=== PATIENT | female | born 1960 | race Two or more races ===

== ENCOUNTER 2017-11-19 07:14 | Emergency (ER) | payer BC, OTHER ==
[~2017-11-19] VITALS: Ht 137.2 cm; Wt 64.0 kg
[~2017-11-19 07:14] MED LIST: PRILOSEC10 MG PO
[2017-11-19] MEDS ORDERED: NKM (07:23)
[2017-11-19] MEDS ORDERED: ROBAXIN-750750 MG PO (07:36)
[2017-11-19] MEDS ORDERED: TYLENOL EXTRA500 MG ORAL (07:36)
[2017-11-19 07:44] VITALS: BP 141/94
[2017-11-19] MEDS ORDERED: Acetaminophen 500mg (ES) tab ORAL ONE (07:45)
[2017-11-19] MEDS ORDERED: Methocarbamol 750mg tab ORAL ONE (07:45)
--- NOTE | 2017-11-19 08:15 | Emergency Room Report ---
History of Present Illness General Chief Complaint: Upper Extremity Injury Source: Patient Present Illness HPI 56-year-old female presents ED for evaluation. Patient presenting with left shoulder and neck pain. States she's had this pain for 2 months. Got worse last night after lifting a baby. Pain is dull, 9 out of 10, radiating through the neck and shoulder. Limited abduction secondary to pain. Denies any other injuries. Denies neck stiffness. Denies headache. Denies chest pain or shortness of breath. No other aggravating relieving factors. Denies any other associated symptoms Allergies: Coded Allergies: No Known Allergies (Unverified , 02/10/12) Patient History Past Medical History: GERD Past Surgical History: none Pertinent Family History: none Social History: Denies: smoking, alcohol use, drug use Last Menstrual Period: 1997 Now: No Immunizations: UTD Reviewed Nursing Documentation: PMH: Agreed; PSxH: Agreed Nursing Documentation-PMH Hx Gastrointestinal Problems: Yes - "occasional acid reflux" - takes omeprazole Review of Systems All Other Systems: negative except mentioned in HPI Physical Exam Vital Signs Date Time Temp Pulse Resp B/P (MAP) Pulse Ox O2 Delivery O2 Flow Rate FiO2 11/19/17 07:19 98.0 73 16 141/94 95 Room Air 98.1 Sp02 EP Interpretation: reviewed, normal General Appearance: no apparent distress, alert, GCS 15, non-toxic Head: normocephalic Eyes: bilateral eye normal inspection, bilateral eye PERRL ENT: hearing grossly normal, normal pharynx, no angioedema, normal voice Neck: full range of motion, no bony tend, supple/symm/no masses, tender lateral Respiratory: chest non-tender, lungs clear, normal breath sounds, speaking full sentences Cardiovascular #1: regular rate, rhythm, no edema Gastrointestinal: normal inspection Rectal: deferred Genitourinary: no CVA tenderness Musculoskeletal: tender - L shoulder, trapezius Neurologic: alert, oriented x3, responsive, motor strength/tone normal, sensory intact, speech normal Psychiatric: normal inspection Skin: normal inspection Lymphatic: normal inspection Medical Decision Making Diagnostic Impression: Primary Impression: Shoulder strain Qualified Codes: S46.912A - Strain of unspecified muscle, fascia and tendon at shoulder and upper arm level, left arm, initial encounter ER Course Hospital Course 56-year-old female presents ED complaining of left-sided neck pain and shoulder pain Differential diagnoses include: neck strain, shoulder strain, dislocation/ fracture Clinical course Patient placed on stretcher. After initial history and physical exam reveals middle-aged female in no acute distress. On exam there is no midline neck tenderness. Full range of motion to the shoulder. There is pain over the left trapezius. Consistent with a neck strain/shoulder strain I ordered tylenol, robaxin, lidoderm patch in ED. Upon reassessment pain is improved Diagnosis - shoulder strain Stable and discharged to home with prescription for treatment Tylenol, Robaxin. Followup with PMD. Return to ED if symptoms recur or worsen Last Vital Signs Date Time Temp Pulse Resp B/P (MAP) Pulse Ox O2 Delivery O2 Flow Rate FiO2 11/19/17 07:44 98.5 73 16 141/94 95 Room Air 98.5 Status: improved Disposition: HOME, SELF-CARE Condition: Stable Scripts Methocarbamol* (ROBAXIN-750*) 750 Mg Tablet 750 MG PO TID, #21 TAB 0 Refills Prov: Larry Ruvalcaba MD 11/19/17 Acetaminophen* (TYLENOL EXTRA STRENGTH*) 500 Mg Tablet 500 MG ORAL Q8H PRN for Prn Headache/Temp > 101, #30 TAB 0 Refills Prov: Larry Ruvalcaba MD 11/19/17 Referrals: [facility] (PCP) Patient Instructions: Muscle Strain, [id number] Larry Ruvalcaba MD Nov 19, 2017 08:15
== END 2017-11-19 07:44 | disposition home or self-care (01) ==
LOC: EMR 07:31
DX: S46.912A Strain of unspecified muscle, fascia and tendon at shoulder and upper arm level, left arm, initial encounter (principal); X50.9XXA Other and unspecified overexertion or strenuous movements or postures, initial encounter; Y92.9 Unspecified place or not applicable; K21.9 Gastro-esophageal reflux disease without esophagitis
CPT/HCPCS: 99283

== ENCOUNTER 2018-04-09 11:13 | Emergency (ER) | payer OTHER ==
[~2018-04-09] VITALS: Ht 152.4 cm; Wt 62.1 kg
[~2018-04-09 11:13] MED LIST changes: +NKM; +ROBAXIN-750750 MG PO; +TYLENOL EXTRA500 MG ORAL
[2018-04-09] MEDS ORDERED: METFORMIN HCL1000 M1 ORAL (11:39)
[2018-04-09 11:45] VITALS: BP 110/62
--- NOTE | 2018-04-09 11:45 | NUR ---
ED Nurse Note: pt walked in c/o abd pain since last night with nausea and diarrhea but no vomiting. pt reports pain on RUQ on palpation and states have pain throughout. active bs noted. pt AA&ox4, gcs=15, skin warm and dry, resp even and unlabored on RA, no active vomiting or diarrhea noted at this time, will cont monitor.
[2018-04-09 12:48] LABS: BASOPHILS % (AUTO) 0.8 % (0.0-2.0); EOSINOPHILS % (AUTO) 3.2 % (0.0-3.0); HEMATOCRIT 46.4 % (37.0-47.0); HEMOGLOBIN 15.1 G/DL (12.0-16.0); LYMPHOCYTES % (AUTO) 11.5 % (20.0-45.0); MEAN CORPUSCULAR VOLUME 88 FL (80-99); MONOCYTES % (AUTO) 4.1 % (1.0-10.0); NEUTROPHILS % (AUTO) 80.4 % (45.0-75.0); PLATELET COUNT 269 K/UL (150-450); RED BLOOD COUNT 5.25 M/UL (4.20-5.40); RED CELL DISTRIBUTION WIDTH 12.5 % (11.6-14.8); WHITE BLOOD COUNT 12.3 K/UL (4.8-10.8)
[2018-04-09 12:52] LABS: APPEARANCE,URINE CLEAR; BILIRUBIN, URINE NEGATIVE (NEGATIVE); GLUCOSE, URINE (UA) NEGATIVE (NEGATIVE); KETONES,URINE 1+ (NEGATIVE); LEUKOCYTE ESTERASE ,URINE 3+ (NEGATIVE); NITRITE,URINE NEGATIVE (NEGATIVE); PH,URINE 5 (4.5-8.0); PROTEIN,URINE 2+ (NEGATIVE); UROBILINOGEN,URINE 1 MG/DL (0.0-1.0)
[2018-04-09 12:55] LABS: ANION GAP 9 mmol/L (5-15); BLOOD UREA NITROGEN 15 mg/dL (7-18); CALCIUM 9.8 MG/DL (8.5-10.1); CARBON DIOXIDE 31 MMOL/L (21-32); CHLORIDE 98 MMOL/L (98-107); CREATININE 0.9 MG/DL (0.55-1.30); POTASSIUM 4.5 MMOL/L (3.5-5.1); SODIUM 138 MMOL/L (136-145)
[2018-04-09 12:59] LABS: ALANINE AMINOTRANSFERASE 41 U/L (12-78); ALBUMIN 4.3 G/DL (3.4-5.0); ALKALINE PHOSPHATASE 85 U/L (46-116); ASPARTATE AMINO TRANSFERASE 26 U/L (15-37); BILIRUBIN,TOTAL 0.8 MG/DL (0.2-1.0)
[2018-04-09] MEDS ORDERED: Ketorolac 30mg Inj IV ONE (13:00)
[2018-04-09 13:01] LABS: COLOR,URINE YELLOW
--- NOTE | 2018-04-09 13:03 | Emergency Room Report ---
History of Present Illness General Chief Complaint: Abdominal Pain Source: Patient Present Illness HPI 57-year-old female presents to the emergency department complaining of 10 out of 10 in severity epigastric and right upper quadrant abdominal pain with nausea and diarrhea since 2 AM this morning. Patient denies fevers or chills. Patient denies vomiting. Patient denies blood in the stools or black tarry stools. Patient denies recent antibiotic use, recent travel or ill contacts with similar symptoms. She denies history of gallstones. He also reports 5 out of 10 in severity generalized headache that had progressive onset she denies dizziness, changes in vision, changes in hearing, or gross motor weakness.Denies CP, Palpitations, LOC, AMS, dizziness, Changes in Vision, Sensation, paresthesias, or a sudden severe headache. She reports history of diabetes. Allergies: Coded Allergies: No Known Allergies (Unverified , 02/10/12) Patient History Past Medical History: see triage record Past Surgical History: none Pertinent Family History: none Now: No Reviewed Nursing Documentation: PMH: Agreed; PSxH: Agreed Nursing Documentation-PMH Past Medical History: No History, Except For Hx Diabetes: Yes - pre-diabetes (not on meds) Hx Gastrointestinal Problems: Yes - "occasional acid reflux" - takes omeprazole Review of Systems All Other Systems: negative except mentioned in HPI Physical Exam Vital Signs Date Time Temp Pulse Resp B/P (MAP) Pulse Ox O2 Delivery O2 Flow Rate FiO2 04/09/18 11:33 98.1 95 22 107/66 97 Room Air Sp02 EP Interpretation: reviewed, normal General Appearance: alert, GCS 15, non-toxic, mild distress Head: normocephalic, atraumatic Eyes: bilateral eye normal inspection, bilateral eye PERRL ENT: hearing grossly normal, normal voice Neck: full range of motion Respiratory: lungs clear, normal breath sounds, speaking full sentences Cardiovascular #1: regular rate, rhythm Gastrointestinal: normal bowel sounds, soft, non-distended, no guarding, tenderness - EPigastric and RUQ ttp. Rectal: deferred Genitourinary: normal inspection, no CVA tenderness Musculoskeletal: back normal, gait/station normal, normal range of motion, non- tender Neurologic: alert, oriented x3, responsive, motor strength/tone normal, sensory intact, normal gait, speech normal, grossly normal Psychiatric: judgement/insight normal Skin: normal color, no rash, warm/dry, well hydrated Lymphatic: no adenopathy Medical Decision Making PA Attestation Dr. Teran is my supervising Physician whom patient management has been discussed with. Diagnostic Impression: Primary Impression: Pancreatitis Qualified Codes: K85.90 - Acute pancreatitis without necrosis or infection, unspecified Additional Impressions: Diarrhea Qualified Codes: R19.7 - Diarrhea, unspecified UTI (urinary tract infection) Qualified Codes: N30.01 - Acute cystitis with hematuria ER Course 57-year-old female presents to the emergency department complaining of 10 out of 10 in severity epigastric and right upper quadrant abdominal pain with nausea and diarrhea since 2 AM this morning. Patient denies fevers or chills. Patient denies vomiting. Patient denies blood in the stools or black tarry stools. Patient denies recent antibiotic use, recent travel or ill contacts with similar symptoms. She denies history of gallstones. He also reports 5 out of 10 in severity generalized headache that had progressive onset she denies dizziness, changes in vision, changes in hearing, or gross motor weakness.Denies CP, Palpitations, LOC, AMS, dizziness, Changes in Vision, Sensation, paresthesias, or a sudden severe headache. She reports history of diabetes. Ddx considered but are not limited to Diverticulitis, acute appy, diarrhea,UC, PUD, GE, pancreatitis, gallstone Vital signs: are WNL, pt. is afebrile H&PE are most consistent with : GE will eval for pancreatic or gallbladder etiology. ORDERS: CBC, CMP, lipase, UA-- elevated Lipase, normal LFT's, evidence of UTI ED INTERVENTIONS: -- 1000NS, Toradol IV, and zofran 4mg. d/w pt. conservative treatment, and to follow up with a primary care provider. pt given a list of primary care clinics for follow up. d/w pt. to return to the ED with worsening or new symptoms. DISCHARGE: At this time pt. is stable for d/c to home. Will provide printed patient care instructions, and any necessary prescriptions. Care plan and follow up instructions have been discussed with the patient prior to discharge. Labs Test 04/09/18 12:30 White Blood Count 12.3 K/UL (4.8-10.8) Red Blood Count 5.25 M/UL (4.20-5.40) Hemoglobin 15.1 G/DL (12.0-16.0) Hematocrit 46.4 % (37.0-47.0) Mean Corpuscular Volume 88 FL (80-99) Mean Corpuscular Hemoglobin 28.7 PG (27.0-31.0) Mean Corpuscular Hemoglobin Concent 32.5 G/DL (32.0-36.0) Red Cell Distribution Width 12.5 % (11.6-14.8) Platelet Count 269 K/UL (150-450) Mean Platelet Volume 6.2 FL (6.5-10.1) Neutrophils (%) (Auto) 80.4 % (45.0-75.0) Lymphocytes (%) (Auto) 11.5 % (20.0-45.0) Monocytes (%) (Auto) 4.1 % (1.0-10.0) Eosinophils (%) (Auto) 3.2 % (0.0-3.0) Basophils (%) (Auto) 0.8 % (0.0-2.0) Urine Color Yellow Urine Appearance Clear Urine pH 5 (4.5-8.0) Urine Specific [place] 1.025 (1.005-1.035) Urine Protein 2+ (NEGATIVE) Urine Glucose (UA) Negative (NEGATIVE) Urine Ketones 1+ (NEGATIVE) Urine Blood 4+ (NEGATIVE) Urine Nitrite Negative (NEGATIVE) Urine Bilirubin Negative (NEGATIVE) Urine Urobilinogen 1 MG/DL (0.0-1.0) Urine Leukocyte Esterase 3+ (NEGATIVE) Urine RBC 5-10 /HPF (0 - 2) Urine WBC 15-20 /HPF (0 - 2) Urine Squamous Epithelial Cells Few /LPF (NONE/OCC) Urine Bacteria Occasional /HPF (NONE) Urine Mucus Few /LPF (NONE/OCC) Sodium Level 138 MMOL/L (136-145) Potassium Level 4.5 MMOL/L (3.5-5.1) Chloride Level 98 MMOL/L (98-107) Carbon Dioxide Level 31 MMOL/L (21-32) Anion Gap 9 mmol/L (5-15) Blood Urea Nitrogen 15 mg/dL (7-18) Creatinine 0.9 MG/DL (0.55-1.30) Estimat Glomerular Filtration Rate > 60 mL/min (>60) Glucose Level 171 MG/DL (74-106) Calcium Level 9.8 MG/DL (8.5-10.1) Total Bilirubin 0.8 MG/DL (0.2-1.0) Aspartate Amino Transf (AST/SGOT) 26 U/L (15-37) Alanine Aminotransferase (ALT/SGPT) 41 U/L (12-78) Alkaline Phosphatase 85 U/L (46-116) Total Protein 8.7 G/DL (6.4-8.2) Albumin 4.3 G/DL (3.4-5.0) Globulin 4.4 g/dL Albumin/Globulin Ratio 1.0 (1.0-2.7) Lipase 745 U/L (73-393) CT/MRI/US Diagnostic Results CT/MRI/US Diagnostic Results : Imaging Test Ordered: CT Abdomen and Pelvis w. Contrast IV Impression Gallbladder surgically removed, normal appendix and size of pancreas, mild wall thickening of the proximal GI tract--Per official radiology report- Please see report for specific details. Last Vital Signs Date Time Temp Pulse Resp B/P (MAP) Pulse Ox O2 Delivery O2 Flow Rate FiO2 04/09/18 11:45 98.1 92 18 110/62 99 Room Air Disposition: HOME, SELF-CARE Condition: Stable Scripts Dicyclomine Hcl* (DICYCLOMINE HCL*) 10 Mg Capsule 10 MG PO QID, #12 CAP Prov: June Jacobs 04/09/18 Ondansetron Odt* (ZOFRAN ODT*) 4 Mg Tab.rapdis 4 MG BC EVERY 6 HOURS PRN for Nausea & Vomiting, #15 TAB 0 Refills Prov: June Jacobs 04/09/18 Sulfamethoxazole/Trimethoprim (BACTRIM 400-80 MG TABLET*) 1 Each Tablet 1 TAB ORAL TWICE A DAY for 7 Days, #14 TAB Prov: June Jacobs 04/09/18 Referrals: [facility] (PCP) Patient Instructions: Abdominal Pain, Adult, Acute Pancreatitis, [id number], Diarrhea, Adult, [id number] Additional Instructions: Take medications as directed. Follow up with a Primary Care Provider in 3-5 days, even if your symptoms have resolved. --Please review list of primary care clinics, if you do not already have a primary care provider Return sooner to ED if new symptoms occur, or current symptoms become worse. - Please note that this Emergency Department Report was dictated using [employer] exchange operator technology software, occasionally this can lead to erroneous entry secondary to interpretation by the dictation equipment. June Jacobs Apr 09, 2018 13:03
[2018-04-09] MEDS ORDERED: Isovue-300 100ml vial INJ PRN (13:30)
--- NOTE | 2018-04-09 15:26 | Diagnostic Imaging Report ---
Clinical Indication: Right upper quadrant pain and epigastric pain Technique: No oral contrast utilized, per emergency room physician request IV administration nonionic contrast. Venous phase spiral acquisition obtained through the abdomen and pelvis. Multiplanar reconstructions were generated. Total dose length product 629.11 mGycm. CTDIvol(s) 12.74 mGy. Dose reduction achieved using automated exposure control Comparison: none Findings: Lack of enteric contrast limits assessment of the GI tract. The appendix is normal. The appendix is normal. No evidence of colonic diverticulosis or diverticulitis. Proximal jejunal loops demonstrate mild wall thickening and are somewhat fluid-filled, somewhat prominent in caliber. More distal loops are normal in caliber, fluid-filled. No free or loculated intraperitoneal gas or fluid is evident. The distal esophagus, stomach, duodenum are unremarkable. There are cholecystectomy clips. The liver is mildly hypoattenuating, consistent with fatty change. No focal abnormality. No biliary ductal dilatation. Pancreas, spleen, adrenals, kidneys are unremarkable. No renal or ureteral calculi, hydronephrosis, or hydroureter. The bladder is mildly distended. No pelvic mass or adenopathy. Normal uterus and adnexal structures. The included lung bases are clear. The bones are unremarkable except for facet arthrosis at and L5-S1 and bilateral sacroiliac joint degenerative change. Impression: Limited assessment of the GI tract, due to lack of enteric contrast demonstration Suggestion of some wall thickening of the short segment of proximal jejunum, mildly fluid-filled proximal small bowel, could indicate enteritis changes No acute process otherwise Fatty liver Evidence of prior cholecystectomy Incidental findings as noted, including bilateral sacroiliac joint degenerative change and bilateral L5-S1 facet arthrosis The CT scanner at [facility] is accredited by the [employer] and the scans are performed using protocols designed to limit radiation exposure to as low as reasonably achievable to attain images of sufficient resolution adequate for diagnostic evaluation.
[2018-04-09] MEDS ORDERED: BACTRIM 400-801 EACH ORAL (15:44)
[2018-04-09] MEDS ORDERED: ONDANSETRON ODT4 MG BC (15:44)
[2018-04-09] MEDS ORDERED: DICYCLOMINE HCL10 MG PO (15:44)
[2018-04-09 15:57] VITALS: BP 118/67
--- NOTE | 2018-04-09 15:58 | NUR ---
ED Nurse Note: pt cleared to be d/c per ER provider, pt discharge/aftercare instruction provided w/ prescription, pt education done via discussion and handout, pt advised to follow up with pcp or return to ed if sx worsen or new sx develop, pt verbalized understanding and agrees with plan. iv d/c and dressing applied, wrist band removed. all belongings left w/ pt, pt vss, ambulatory w/ steady gait, resp even and unlabored on RA.
== END 2018-04-09 15:59 | disposition home or self-care (01) ==
LOC: EMR 12:20
DX: K85.90 Acute pancreatitis without necrosis or infection, unspecified (principal); R19.7 Diarrhea, unspecified; N39.0 Urinary tract infection, site not specified; E11.9 Type 2 diabetes mellitus without complications
CPT/HCPCS: 36415; 74177; 80053; 81003; 82962; 83690; 85025; 87086; 96361; 96374; 96375; 99284; J1885; J2405; Q9967; S0028

== ENCOUNTER 2019-05-26 17:43 | Emergency (ER) | payer SELFPAY ==
[~2019-05-26] VITALS: Ht 152.4 cm; Wt 63.0 kg
[~2019-05-26 17:43] MED LIST changes: +BACTRIM 400-801 EACH ORAL; +DICYCLOMINE HCL10 MG PO; +METFORMIN HCL1000 M1 ORAL; +ONDANSETRON ODT4 MG BC
[2019-05-26 18:10] VITALS: BP 150/89
--- NOTE | 2019-05-26 18:10 | NUR ---
ED Nurse Note: Pt walked into ED from home for c/o UTI like symptoms onset one week ago. Pt states she has dysuria, pain around vaginal area and urgency to use restroom. Pt is aaox4, breathing is normal and unlabored, no acute distress noted. Will continue to monitor. Urine specimen collected and sent to lab.
--- NOTE | 2019-05-26 18:10 | Emergency Room Report ---
History of Present Illness General Chief Complaint: Female Urogenital Problems Source: Patient Present Illness HPI 58 YO female presents to the ED c/o 6/0 in severity pelvic cramping x 3 days. Pt. reports pain has been progressive. She also reports last week she experienced vaginal bleeding similar to that of a period. Pt. Denies vaginal d/ c. She does reports burning sensation of the inner genital area. She denies external burning or itching. She reports experiencing dysuria as well. She denies low back pain. She describes her pelvic cramping as similar to contractions during . Denies fevers, chills, nausea or vomiting. She denies constipation or diarrhea. Allergies: Coded Allergies: No Known Allergies (Unverified , 02/10/12) COVID-19 Screening Contact w/high risk pt: No Recent Travel to affected area: No Experienced COVID-19 symptoms?: No Patient History Past Medical History: see triage record Past Surgical History: none Pertinent Family History: none Last Menstrual Period: na Reviewed Nursing Documentation: PMH: Agreed; PSxH: Agreed Nursing Documentation-PMH Hx Diabetes: Yes - pre-diabetes (not on meds) Hx Gastrointestinal Problems: Yes - "occasional acid reflux" - takes omeprazole Review of Systems All Other Systems: negative except mentioned in HPI Physical Exam Vital Signs Date Time Temp Pulse Resp B/P (MAP) Pulse Ox O2 Delivery O2 Flow Rate FiO2 05/26/19 17:45 97.7 91 17 150/89 (109) 97 Room Air Sp02 EP Interpretation: reviewed, normal General Appearance: no apparent distress, alert, GCS 15, non-toxic Head: normocephalic, atraumatic Eyes: bilateral eye normal inspection, bilateral eye PERRL ENT: hearing grossly normal, normal voice Neck: full range of motion Respiratory: lungs clear, normal breath sounds, speaking full sentences Cardiovascular #1: regular rate, rhythm Gastrointestinal: normal bowel sounds, non tender, soft, non-distended, no guarding Genitourinary: normal inspection, no CVA tenderness, ext genitalia/vag normal Musculoskeletal: back normal, normal range of motion, gait/station normal, non- tender Neurologic: alert, motor strength/tone normal, oriented x3, sensory intact, responsive, speech normal Psychiatric: judgement/insight normal Skin: no rash, normal color Medical Decision Making PA Attestation Dr. Foote is my supervising Physician whom patient management has been discussed with. Diagnostic Impression: Primary Impression: Urinary tract infection Qualified Codes: N30.01 - Acute cystitis with hematuria ER Course 65-year-old female presents to the emergency department complaining of productive cough x3 days. Patient reports symptoms are progressive she describes greenish colored sputum. Patient reports nasal congestion and rhinorrhea. She denies pain at this time however she states she has history of chronic pain and with persistent coughing sometimes exacerbates her pain. Patient denies fevers or chills. Patient is also reporting that she was picked up by ambulance and they did not bring her wheelchair. Patient is ambulatory. Denies sore throat, ear pain, high fevers, lethargy, neck pain/stiffness, irritability, photophobia dehydration, N/V/D. Denies Cp, SOB, Palpitations, LOC , AMS, seizures, paresthesias, or changes in Hearing or vision, no Sudden severe CROWE. Denies recent travel. Denies contact with persons who have tested positive for or are under investigation/quarantine for COVID-19. Ddx considered but are not limited to: Fibroid, Malignancy, UTI, STI, vaginitis , torsion, TOA, DUB just to name a few. Vital signs: are WNL, pt. is afebrile H&PE are most consistent with: possible Fibroid vs. UTI, pt. nontoxic in appearance in no acute distress. She is not currently having any vaginal bleeding at this time. ORDERS: -UA: Moderate bacteria, and increased inflammatory markers that are consistent with a UTI. -Pelvic US: no acute findings. ED INTERVENTIONS: -Toradol IM 30mg DISCHARGE: At this time pt. is stable for d/c to home. Will provide printed patient care instructions, and any necessary prescriptions. Care plan and follow up instructions have been discussed with the patient prior to discharge. Labs Test 05/26/19 18:15 Urine Color Pale yellow Urine Appearance Slightly cloudy Urine pH 5 (4.5-8.0) Urine Specific [place] 1.015 (1.005-1.035) Urine Protein Negative (NEGATIVE) Urine Glucose (UA) Negative (NEGATIVE) Urine Ketones Negative (NEGATIVE) Urine Blood 2+ (NEGATIVE) Urine Nitrite Negative (NEGATIVE) Urine Bilirubin Negative (NEGATIVE) Urine Urobilinogen Normal MG/DL (0.0-1.0) Urine Leukocyte Esterase 1+ (NEGATIVE) Urine RBC 10-15 /HPF (0 - 2) Urine WBC 15-20 /HPF (0 - 2) Urine Squamous Epithelial Cells Few /LPF (NONE/OCC) Urine Bacteria Moderate /HPF (NONE) CT/MRI/US Diagnostic Results CT/MRI/US Diagnostic Results : Imaging Test Ordered: Transvaginal US Impression " No acute findings" per official radiology report- Please see report for specific details. Last Vital Signs Date Time Temp Pulse Resp B/P (MAP) Pulse Ox O2 Delivery O2 Flow Rate FiO2 05/26/19 17:45 97.7 91 17 150/89 (109) 97 Room Air Disposition: HOME, SELF-CARE Condition: Stable Scripts Ibuprofen* (MOTRIN*) 600 Mg Tablet 600 MG ORAL THREE TIMES A DAY, #20 TAB Prov: June Jacobs 05/26/19 Nitrofurantoin Monohyd/M-Cryst* (MACROBID 100 MG*) 100 Mg Capsule 100 MG ORAL EVERY 12 HOURS for 7 Days, #14 CAP Prov: June Jacobs 05/26/19 Referrals: NOT CHOSEN [facility],REFERRING (PCP) Patient Instructions: Urinary Tract Infection Additional Instructions: Take medications as directed. Follow up with a STRAIGHTENING ROLL OPERATOR within 3-5 days, even if your symptoms have resolved. Return sooner to ED if new symptoms occur, or current symptoms become worse. - Please note that this Emergency Department Report was dictated using [employer] testing technician technology software, occasionally this can lead to erroneous entry secondary to interpretation by the dictation equipment. June Jacobs May 26, 2019 18:10
[2019-05-26 18:40] LABS: APPEARANCE,URINE SLIGHTLY CLOUDY; BILIRUBIN, URINE NEGATIVE (NEGATIVE); COLOR,URINE PALE YELLOW; GLUCOSE, URINE (UA) NEGATIVE (NEGATIVE); KETONES,URINE NEGATIVE (NEGATIVE); LEUKOCYTE ESTERASE ,URINE 1+ (NEGATIVE); NITRITE,URINE NEGATIVE (NEGATIVE); PH,URINE 5 (4.5-8.0); PROTEIN,URINE NEGATIVE (NEGATIVE); UROBILINOGEN,URINE NORMAL MG/DL (0.0-1.0)
--- NOTE | 2019-05-26 19:02 | NUR ---
patient's daughter [phone]
--- NOTE | 2019-05-26 19:15 | NUR ---
ED Nurse Note: Pt is resting in bed at this time. NAD.
--- NOTE | 2019-05-26 19:39 | Diagnostic Imaging Report ---
Indication: Pelvic pain and vaginal bleeding Technique: Transabdominal and transvaginal images of the pelvis. Doppler interrogation of the ovaries Comparison: No comparison sonograms. Reference made to abdomen pelvis CT dated 04/09/2018 Findings: Uterus measures 5.4 cm in length by 2.7 cm AP. The endometrium measures 7 mm thick. No myometrial abnormality. The right ovary is visualized only on the transabdominal images, measures 2.5 cm long axis dimension and demonstrates normal flow on Doppler. The left ovary could not be visualized. No free cul-de-sac fluid Impression: Nonvisualized left ovary, presumably atrophic. Postmenopausal state No acute or significant abnormality
[2019-05-26] MEDS ORDERED: NITROFURANTOIN100 M2 ORAL (19:54)
[2019-05-26] MEDS ORDERED: IBUPROFEN600 M1 ORAL (19:54)
[2019-05-26 20:00] VITALS: BP 144/85
[2019-05-26] MEDS ORDERED: Ketorolac 30mg Inj IM ONE (20:00)
--- NOTE | 2019-05-26 20:00 | NUR ---
ER DISCHARGE NOTE: Patient is cleared to be discharged per ERMD, pt is aox4, on room air, with stable vital signs. pt was given dc and prescription instructions, pt was able to verbalize understanding, pt id band removed. pt is able to ambulate with steady gait. pt took all belongings.
== END 2019-05-26 20:00 | disposition home or self-care (01) ==
LOC: EMR 18:01
DX: N30.01 Acute cystitis with hematuria (principal); R05 Cough; R73.03 Prediabetes
CPT/HCPCS: 76830; 76856; 81003; 87086; 96372; 99284; J1885